=== PATIENT | female | born 1930 | race Caucasian/White ===

== ENCOUNTER 2016-11-08 12:05 | Inpatient (IN) | payer OTHER ==
[~2016-11-08] VITALS: Ht 154.9 cm; Wt 94.3 kg
[~2016-11-08 12:05] MED LIST: ACET-2178 PO; ALLO100T PO; ASPI-1159 PO; ATOR10TA69 PO; BRIM5DRO BOTHEYE; CALC667T5 PO; CINA30 PO; CINN500C5 PO; FISH PO; GLUC1CAP17 PO; HUM100IN SQ; HUM10VIA9 SUBCUT; LEVO125T8 PO; [UNRECOGNIZED DRUG - CODE] PO
[2016-11-08] MEDS ORDERED: ONDANSETRON HCL 4MG/2ML VIAL IV STA (12:50)
[2016-11-08] MEDS ORDERED: MORPHINE SULFATE 4 MG/ML CPJ (NOT FOR IM USE) IV STA (12:50)
[2016-11-08 13:09] LABS: BASOPHILS % 1.1 % (0.0-2.0); EOSINOPHILS % 5.9 % (0.0-5.0); HEMATOCRIT. 35.4 % (36.0-48.0); HEMOGLOBIN. 11.6 g/dL (12.0-16.0); LYMPHOCYTES % 10.3 % (20.0-50.0); MEAN CORPUSCULAR HEMOGLOBIN 30.1 pg (28.0-32.0); MEAN CORPUSCULAR VOLUME 91.6 fL (81.0-99.0); MEAN PLATELET VOLUME 8.3 fl (7.4-10.4); NEUTROPHILS % 72.7 % (40.0-76.0); PLATELET 113 x1000/uL (130-400); RED BLOOD CELL COUNT 3.86 mill/uL (4.2-5.4); RED CELL DISTRIBUTION WIDTH 18.3 % (11.6-14.6)
[2016-11-08 13:17] LABS: CHLORIDE 100 mEq/L (98-107)
[2016-11-08 13:18] LABS: INR 1.1; PARTIAL THROMBOPLASTIN TIME 26.6 sec (24.0-34.0); PROTHROMBIN TIME 11.4 sec
[2016-11-08 13:23] LABS: CARBON DIOXIDE 31 mEq/L (21-32)
[2016-11-08] MEDS ORDERED: DEXTROSE 50% WATER 50ML SYRINGE IV ONE ×2 (15:30→16:15)
[2016-11-08 17:01] VITALS: BP 139/76
[2016-11-08] MEDS ORDERED: MONT10TA21 PO (17:14)
[2016-11-08] MEDS ORDERED: NEPVIT PO (17:14)
[2016-11-08] MEDS ORDERED: ALBU90AE IH (17:14)
[2016-11-08] MEDS ORDERED: DIGO125T82 PO (17:14)
[2016-11-08] MEDS ORDERED: ASPI-864 PO (17:19)
[2016-11-08] MEDS ORDERED: VIT1CAPS5 PO (17:19)
[2016-11-08 17:27] VITALS: BP 139/76
[2016-11-08] MEDS ORDERED: IPRATROPIUM/ALBUTEROL 0.5-3(2.5)MG/3ML NEB HHN PRN (17:45)
[2016-11-08] MEDS ORDERED: DEXTROSE 50% WATER 50ML SYRINGE IV PRN (17:45)
[2016-11-08] MEDS ORDERED: HYDROCODONE/ACETAMINOPHEN 5/325MG TABLET PO PRN (17:45)
[2016-11-08 20:00] VITALS: BP 115/55
[2016-11-08] MEDS: BLOOD SUGAR DIAGNOSTIC STRIP TEST SCH (20:44)
[2016-11-08] MEDS: INSULIN LISPRO 100 UNITS/ML SUBCUT SCH (20:55)
[2016-11-08] MEDS ORDERED: MONTELUKAST SODIUM 10MG TABLET PO SCH (21:00)
[2016-11-08] MEDS ORDERED: ALLOPURINOL 100 MG TABLET PO SCH (21:00)
[2016-11-08] MEDS: BRIMONIDINE 0.2% OPHTH DROPS 5ML EACHEYE SCH (21:13)
[2016-11-09] VITALS (17 sets, daily range): BP systolic 117–173; BP diastolic 41–84
[2016-11-09 06:19] LABS: BASOPHILS % 1.3 % (0.0-2.0); EOSINOPHILS % 8.3 % (0.0-5.0); HEMATOCRIT. 35.7 % (36.0-48.0); HEMOGLOBIN. 12.1 g/dL (12.0-16.0); LYMPHOCYTES % 10.7 % (20.0-50.0); MEAN CORPUSCULAR HEMOGLOBIN 31.8 pg (28.0-32.0); MEAN CORPUSCULAR VOLUME 94.4 fL (81.0-99.0); MEAN PLATELET VOLUME 8.6 fl (7.4-10.4); MONOCYTES % 12.8 % (2.0-8.0); NEUTROPHILS % 66.9 % (40.0-76.0); PLATELET 113 x1000/uL (130-400); RED BLOOD CELL COUNT 3.79 mill/uL (4.2-5.4); RED CELL DISTRIBUTION WIDTH 18.4 % (11.6-14.6)
[2016-11-09] MEDS: INSULIN LISPRO 100 UNITS/ML SUBCUT SCH ×3 (06:21→17:20)
[2016-11-09] MEDS: BLOOD SUGAR DIAGNOSTIC STRIP TEST SCH ×3 (06:21→17:19)
[2016-11-09] MEDS ORDERED: LEVOTHYROXINE SODIUM 125MCG TABLET PO SCH (07:10)
[2016-11-09] MEDS ORDERED: CINACALCET HCL 30MG TABLET PO SCH (07:40)
[2016-11-09] MEDS ORDERED: ATORVASTATIN CALCIUM 10MG TABLET PO SCH (09:00)
[2016-11-09] MEDS ORDERED: INS NPH/REG HM 70-30 100 UNITS/ML 10ML VIAL (HUMULIN 70-30) SUBCUT SCH (09:00)
[2016-11-09] MEDS ORDERED: FOLIC ACID/VITAMIN B COMP W-C TABLET PO SCH (09:00)
[2016-11-09] MEDS ORDERED: FISH OIL/OMEGA-3 FATTY ACIDS 1000MG CAPSULE PO SCH (09:00)
[2016-11-09] MEDS ORDERED: DEXTROSE 5% WATER 1,000 ML IV SCH (10:15)
[2016-11-09] MEDS: BRIMONIDINE 0.2% OPHTH DROPS 5ML EACHEYE SCH (10:21)
[2016-11-09] MEDS ORDERED: CEFAZOLIN 1000MG PREMIX 50 ML IV ONE ×2 (10:38→11:15)
[2016-11-09] MEDS ORDERED: SODIUM BICARBONATE 4% (2.4MEQ) 5ML VIAL IV ONE ×2 (10:57→13:43)
[2016-11-09] MEDS ORDERED: LIDOCAINE HCL 1% 20ML VIAL (Pyxis) INJ ONE ×2 (10:57→13:43)
[2016-11-09] MEDS ORDERED: FENTANYL CITRATE/PF 50MCG/ML 2ML VIAL ONE (11:15)
[2016-11-09] MEDS ORDERED: HEPARIN 1000 UNITS/ML 10ML ONE (11:31)
[2016-11-09] MEDS ORDERED: IOHEXOL-300 100 ML BOTTLE ONE (11:42)
[2016-11-09] MEDS ORDERED: HEPARIN 5000 UNITS/ML VIAL IV ONE (12:00)
[2016-11-09] MEDS ORDERED: HEPARIN 1000 UNITS/ML 10ML IV NR (12:15)
[2016-11-09] MEDS ORDERED: FENTANYL CITRATE/PF 50MCG/ML 2ML VIAL IV ONE (12:15)
[2016-11-09] MEDS ORDERED: DIGOXIN 125MCG TABLET PO SCH (18:00)
== END 2016-11-09 22:05 | disposition home or self-care (01) | DRG 270 ==
LOC: ER 12:05 → 8WST 14:17 → OBSVTOIN 14:17 → INTOOBSV 14:17 → EDBEDREQ 14:19 → EDBEDREQTM 14:19 → ENRESERV 15:22 → 8WST 16:53
PROVIDERS: ADMIT Internal Medicine; ATTEND Internal Medicine
PROC: 03C Upper Arteries, Extirpation (ICD-10-PCS; principal; 2016-11-09)
PROC: 03723ZZ Dilation of Innominate Artery, Percutaneous Approach (ICD-10-PCS; 2016-11-09)
PROC: 02PYX3Z Removal of Infusion Device from Great Vessel, External Approach (ICD-10-PCS; 2016-11-09)
PROC: 02HV33Z Insertion of Infusion Device into Superior Vena Cava, Percutaneous Approach (ICD-10-PCS; 2016-11-09)
PROC: B5181ZA Fluoroscopy of Superior Vena Cava using Low Osmolar Contrast, Guidance (ICD-10-PCS; 2016-11-09)
PROC: B51N1ZZ Fluoroscopy of Left Upper Extremity Veins using Low Osmolar Contrast (ICD-10-PCS; 2016-11-09)
PROC: B51W1ZZ Fluoroscopy of Dialysis Shunt/Fistula using Low Osmolar Contrast (ICD-10-PCS; 2016-11-09)
PROC: B5181ZZ Fluoroscopy of Superior Vena Cava using Low Osmolar Contrast (ICD-10-PCS; 2016-11-09)
PROC: B31N1ZZ Fluoroscopy of Other Upper Arteries using Low Osmolar Contrast (ICD-10-PCS; 2016-11-09)
DX: T82.868A Thrombosis due to vascular prosthetic devices, implants and grafts, initial encounter (principal); N18.6 End stage renal disease; I13.2 Hypertensive heart and chronic kidney disease with heart failure and with stage 5 chronic kidney disease, or end stage renal disease; I42.0 Dilated cardiomyopathy; E11.22 Type 2 diabetes mellitus with diabetic chronic kidney disease; T82.510A Breakdown (mechanical) of surgically created arteriovenous fistula, initial encounter; N25.81 Secondary hyperparathyroidism of renal origin; I50.22 Chronic systolic (congestive) heart failure; E11.51 Type 2 diabetes mellitus with diabetic peripheral angiopathy without gangrene; D64.9 Anemia, unspecified; E03.9 Hypothyroidism, unspecified; I48.0 Paroxysmal atrial fibrillation; M10.9 Gout, unspecified; Y71.2 Prosthetic and other implants, materials and accessory cardiovascular devices associated with adverse incidents; Y83.2 Surgical operation with anastomosis, bypass or graft as the cause of abnormal reaction of the patient, or of later complication, without mention of misadventure at the time of the procedure; Z99.2 Dependence on renal dialysis; Z90.710 Acquired absence of both cervix and uterus; Z90.49 Acquired absence of other specified parts of digestive tract; Z88.2 Allergy status to sulfonamides; Z91.048 Other nonmedicinal substance allergy status; Z79.82 Long term (current) use of aspirin; Z79.4 Long term (current) use of insulin
CPT/HCPCS: 36415; 36581; 36905; 71010; 77001; 80048; 80053; 82962; 85025; 85610; 85730; 93005; 96374; 96375; 99285; C1725; C1750; C1766; C1769; C2630; G0378; J0690; J1642; J1644; J1815; J3010; J3490; J7030; J7050; J7070; Q9967

== ENCOUNTER 2016-12-19 13:53 | Inpatient (IN) | payer OTHER ==
[~2016-12-19] VITALS: Ht 154.9 cm; Wt 109.3 kg
[~2016-12-19 13:53] MED LIST changes: -ACET-2178 PO; +ALBU90AE IH; -ASPI-1159 PO; +ASPI-864 PO; +DIGO125T82 PO; +MONT10TA21 PO; +NEPVIT PO; +VIT1CAPS5 PO; -[UNRECOGNIZED DRUG - CODE] PO
[2016-12-19] MEDS ORDERED: MORPHINE SULFATE 4 MG/ML CPJ (NOT FOR IM USE) IV STA (14:24)
[2016-12-19] MEDS ORDERED: ONDANSETRON HCL 4MG/2ML VIAL IV STA (14:24)
[2016-12-19] MEDS ORDERED: SODIUM CHLORIDE 0.9% 1,000 ML IV ONE (14:24)
[2016-12-19 15:03] LABS: BASOPHILS % 1.2 % (0.0-2.0); EOSINOPHILS % 1.7 % (0.0-5.0); HEMATOCRIT. 42.1 % (36.0-48.0); HEMOGLOBIN. 14.1 g/dL (12.0-16.0); LYMPHOCYTES % 8.7 % (20.0-50.0); MEAN CORPUSCULAR HEMOGLOBIN 32.6 pg (28.0-32.0); MEAN CORPUSCULAR VOLUME 97.3 fL (81.0-99.0); MEAN PLATELET VOLUME 7.8 fl (7.4-10.4); MONOCYTES % 8.4 % (2.0-8.0); PLATELET 206 x1000/uL (130-400); RED BLOOD CELL COUNT 4.32 mill/uL (4.2-5.4); RED CELL DISTRIBUTION WIDTH 16.9 % (11.6-14.6)
[2016-12-19 15:07] LABS: INR 1.1; PARTIAL THROMBOPLASTIN TIME 25.2 sec (23.4-31.0); PROTHROMBIN TIME 11.7 sec (9.4-11.6)
[2016-12-19 15:08] LABS: CHLORIDE 101 mEq/L (98-107)
[2016-12-19 15:10] LABS: CARBON DIOXIDE 22 mEq/L (21-32)
[2016-12-19] MEDS ORDERED: MORPHINE SULFATE 4 MG/ML CPJ (NOT FOR IM USE) IV ONE (16:30)
[2016-12-19 16:47] LABS: BG BASE EXCESS -3.4 mmol/L (-2.0-2.0); BG DEOXYHEMOGLOBIN 7.7 % (0.0-5.0); BG METHEMOGLOBIN 0.3 % (0.0-1.5); BG OXYGEN SATURATION 92.2 % (92.0-98.5); BG PCO2 40.5 mmHg (35.0-45.0); BG PH 7.352 (7.350-7.450); BG PO2 66.1 mmHg (75.0-100.0); BG SAMPLE SITE RIGHT RADIAL; BG TOTAL HEMOGLOBIN 14.6 g/dL (12.0-18.0); BG VENT MODE ROOM AIR
[2016-12-19] MEDS ORDERED: ONDANSETRON HCL 4MG/2ML VIAL IV PRN (23:30)
[2016-12-19] MEDS ORDERED: PANTOPRAZOLE SODIUM 40 MG/VIAL IV SCH (23:30)
[2016-12-19] MEDS: MORPHINE SULFATE 4 MG/ML CPJ (NOT FOR IM USE) IV PRN (23:45)
[2016-12-20] VITALS (9 sets, daily range): BP systolic 90–158; BP diastolic 39–85
[2016-12-20] MEDS ORDERED: NEPVIT PO (00:35)
[2016-12-20] MEDS ORDERED: ONDANSETRON HCL 4MG/2ML VIAL IV PRN (01:45)
[2016-12-20] MEDS: MORPHINE SULFATE 4 MG/ML CPJ (NOT FOR IM USE) IV PRN ×4 (02:55→20:48)
[2016-12-20] MEDS: PIPERACILLIN/TAZ 2.25G PREMIX 50 ML IV SCH ×3 (03:06→18:20)
[2016-12-20] MEDS: DEXT 5%/0.45% NACL 1000ML 1,000 ML IV SCH ×2 (03:06→16:45)
[2016-12-20] MEDS ORDERED: IOHEXOL-300 100 ML BOTTLE ONE ×2 (06:00→15:09)
[2016-12-20] MEDS ORDERED: SODIUM CHLORIDE 0.9% 10ML VIAL ONE ×2 (06:00→15:09)
[2016-12-20 06:31] LABS: HEMATOCRIT. 45.2 % (36.0-48.0); HEMOGLOBIN. 14.3 g/dL (12.0-16.0); MEAN CORPUSCULAR HEMOGLOBIN 31.6 pg (28.0-32.0); MEAN PLATELET VOLUME 8.7 fl (7.4-10.4); PLATELET 154 x1000/uL (130-400); RED BLOOD CELL COUNT 4.52 mill/uL (4.2-5.4); RED CELL DISTRIBUTION WIDTH 17.2 % (11.6-14.6)
[2016-12-20] MEDS: PANTOPRAZOLE SODIUM 40 MG/VIAL IV SCH (08:42)
[2016-12-20] MEDS ORDERED: DEXTROSE 50% WATER 50ML SYRINGE IV PRN (11:30)
[2016-12-20] MEDS ORDERED: PIPERACILLIN/TAZ 3.375G PREMIX 50 ML IV SCH (11:45)
[2016-12-20] MEDS: BLOOD SUGAR DIAGNOSTIC STRIP TEST SCH ×3 (12:36→20:54)
[2016-12-20] MEDS: INSULIN LISPRO 100 UNITS/ML SUBCUT SCH ×3 (12:36→21:00)
[2016-12-20] MEDS ORDERED: BACITRACIN ZINC 15GM TUBE TOP ONE (13:35)
[2016-12-20 17:31] LABS: PLATELET ESTIMATE NORMAL
[2016-12-21] VITALS (15 sets, daily range): BP systolic 92–155; BP diastolic 39–126
[2016-12-21] MEDS: MORPHINE SULFATE 4 MG/ML CPJ (NOT FOR IM USE) IV PRN ×5 (00:44→23:47)
[2016-12-21] MEDS: PIPERACILLIN/TAZ 2.25G PREMIX 50 ML IV SCH ×3 (03:30→18:58)
[2016-12-21] MEDS: DEXT 5%/0.45% NACL 1000ML 1,000 ML IV SCH (05:40)
[2016-12-21] MEDS: BLOOD SUGAR DIAGNOSTIC STRIP TEST SCH ×4 (06:37→21:00)
[2016-12-21 07:08] LABS: CARBON DIOXIDE 26 mEq/L (21-32); CHLORIDE 97 mEq/L (98-107); PHOSPHORUS 3.9 mg/dL (2.5-4.9)
[2016-12-21] MEDS: INSULIN LISPRO 100 UNITS/ML SUBCUT SCH ×5 (07:50→21:00)
[2016-12-21 07:59] LABS: HEMATOCRIT. 38.5 % (36.0-48.0); HEMOGLOBIN. 12.2 g/dL (12.0-16.0); MEAN CORPUSCULAR HEMOGLOBIN 31.2 pg (28.0-32.0); MEAN CORPUSCULAR VOLUME 98.3 fL (81.0-99.0); PLATELET 98 x1000/uL (130-400); RED BLOOD CELL COUNT 3.92 mill/uL (4.2-5.4)
[2016-12-21] MEDS: PANTOPRAZOLE SODIUM 40 MG/VIAL IV SCH ×3 (09:00→16:31)
[2016-12-21] MEDS ORDERED: ONDANSETRON HCL 4MG/2ML VIAL IV PRN ×2 (10:00→12:15)
[2016-12-21] MEDS ORDERED: DEXT 5%/0.45% NACL KCL 20MEQ/L 1,000 ML IV SCH (11:00)
[2016-12-21] MEDS ORDERED: FENTANYL CITRATE/PF 50MCG/ML 2ML VIAL ONE (11:34)
[2016-12-21] MEDS ORDERED: MIDAZOLAM HCL 2 MG/2 ML VIAL ONE (11:34)
[2016-12-21] MEDS ORDERED: HYDROMORPHONE HCL/PF 2MG/ML CPJ IV PRN (12:15)
[2016-12-21] MEDS ORDERED: MEPERIDINE HCL/PF 25MG/ML CPJ IV PRN (12:15)
[2016-12-21] MEDS ORDERED: LABETALOL HCL 20MG/4ML CARPUJECT IV PRN (12:15)
[2016-12-21] MEDS ORDERED: LIDOCAINE HCL 1% 20ML VIAL (Pyxis) INJ ONE (12:25)
[2016-12-21] MEDS ORDERED: DEXAMETHASONE 4MG/ML 1ML VIAL ONE (12:25)
[2016-12-21] MEDS ORDERED: ONDANSETRON HCL 4MG/2ML VIAL ONE (12:25)
[2016-12-21] MEDS ORDERED: NEOSTIGMINE METHYLSULFATE 1MG/ML 10 ML VIAL ONE (12:25)
[2016-12-21] MEDS ORDERED: GLYCOPYRROLATE 0.2 MG/ML 2ML VIAL ONE (12:25)
[2016-12-21] MEDS ORDERED: ROCURONIUM BROMIDE 10MG/ML VIAL 5ML IV ONE (12:25)
[2016-12-21] MEDS ORDERED: PROPOFOL 200MG/20ML VIAL IV ONE (12:25)
[2016-12-21] MEDS ORDERED: SUCCINYLCHOLINE CHLORIDE 200MG/10ML VIAL IV ONE (12:25)
[2016-12-21 16:23] LABS: PHOSPHORUS 4.4 mg/dL (2.5-4.9)
[2016-12-21 16:30] LABS: PLATELET ESTIMATE DECREASED
[2016-12-21] MEDS: SODIUM CHLORIDE 0.45% 1,000 ML IV SCH (16:31)
[2016-12-21 17:19] LABS: HEMATOCRIT. 38.5 % (36.0-48.0); HEMOGLOBIN. 12.5 g/dL (12.0-16.0); MEAN CORPUSCULAR HEMOGLOBIN 31.7 pg (28.0-32.0); MEAN CORPUSCULAR VOLUME 97.6 fL (81.0-99.0); PLATELET 96 x1000/uL (130-400); RED BLOOD CELL COUNT 3.95 mill/uL (4.2-5.4)
[2016-12-21 17:42] LABS: PLATELET ESTIMATE DECREASED
[2016-12-21 18:57] LABS: BG BASE EXCESS -2.1 mmol/L (-2.0-2.0); BG CARBOXYHEMOGLOBIN 0.9 % (0.5-1.5); BG FRACTION INSPIRED OXYGEN 40; BG HCO3 ACT 22.8 mmol/L (22.0-26.0); BG METHEMOGLOBIN 0.3 % (0.0-1.5); BG OXYHEMOGLOBIN 96.8 % (94.0-97.0); BG PCO2 39.7 mmHg (35.0-45.0); BG PH 7.377 (7.350-7.450); BG PRESSURE SUPPORT 6; BG SAMPLE SITE RIGHT RADIAL; BG TOTAL HEMOGLOBIN 13.8 g/dL (12.0-18.0); BG VENT MODE VENT - CPAP
[2016-12-21 23:03] LABS: BG BASE EXCESS -2.5 mmol/L (-2.0-2.0); BG CARBOXYHEMOGLOBIN 0.8 % (0.5-1.5); BG DEOXYHEMOGLOBIN 1.4 % (0.0-5.0); BG FRACTION INSPIRED OXYGEN 40; BG HCO3 ACT 22.7 mmol/L (22.0-26.0); BG METHEMOGLOBIN 0.3 % (0.0-1.5); BG OXYGEN SATURATION 98.6 % (92.0-98.5); BG OXYHEMOGLOBIN 97.5 % (94.0-97.0); BG PCO2 40.7 mmHg (35.0-45.0); BG PH 7.364 (7.350-7.450); BG PO2 121.7 mmHg (75.0-100.0); BG SAMPLE SITE RIGHT RADIAL; BG VENT MODE MASK - AEROSOL
[2016-12-22] VITALS (70 sets, daily range): BP systolic 60–166; BP diastolic 23–150
[2016-12-22] MEDS: PIPERACILLIN/TAZ 2.25G PREMIX 50 ML IV SCH ×3 (02:08→18:59)
[2016-12-22] MEDS: MORPHINE SULFATE 4 MG/ML CPJ (NOT FOR IM USE) IV PRN (04:15)
[2016-12-22 06:08] LABS: HEMATOCRIT. 37.1 % (36.0-48.0); HEMOGLOBIN. 12.2 g/dL (12.0-16.0); MEAN CORPUSCULAR HEMOGLOBIN 31.9 pg (28.0-32.0); MEAN CORPUSCULAR VOLUME 97.3 fL (81.0-99.0); MEAN PLATELET VOLUME 9.5 fl (7.4-10.4); PLATELET 105 x1000/uL (130-400); RED BLOOD CELL COUNT 3.81 mill/uL (4.2-5.4); RED CELL DISTRIBUTION WIDTH 16.6 % (11.6-14.6)
[2016-12-22 06:24] LABS: INR 1.4; PARTIAL THROMBOPLASTIN TIME 31.5 sec (23.4-31.0)
[2016-12-22 06:41] LABS: CARBON DIOXIDE 24 mEq/L (21-32); CHLORIDE 96 mEq/L (98-107); PHOSPHORUS 4.8 mg/dL (2.5-4.9)
[2016-12-22] MEDS: BLOOD SUGAR DIAGNOSTIC STRIP TEST SCH ×4 (07:50→21:20)
[2016-12-22] MEDS: INSULIN LISPRO 100 UNITS/ML SUBCUT SCH ×4 (08:20→21:00)
[2016-12-22] MEDS ORDERED: PANTOPRAZOLE SODIUM 40 MG/VIAL IV SCH (09:00)
[2016-12-22 10:06] LABS: PLATELET ESTIMATE SLIGHTLY DECREASED
[2016-12-22] MEDS: DILTIAZEM HCL 5MG/ML 5ML VIAL IV NR ×2 (11:12→12:00)
[2016-12-22] MEDS: PANTOPRAZOLE SODIUM 40 MG/VIAL IV SCH ×2 (11:12→12:00)
[2016-12-22] MEDS: ENOXAPARIN 40MG/0.4ML SYR SUBCUT SCH (11:13)
[2016-12-22] MEDS: DILTIAZEM HCL 125 MG in DEXT 5% WATER 100 ML IV SCH (12:14)
[2016-12-22] MEDS: SODIUM CHLORIDE 0.45% 1,000 ML IV SCH (15:52)
[2016-12-23] VITALS (29 sets, daily range): BP systolic 94–128; BP diastolic 42–66
[2016-12-23] MEDS: DILTIAZEM HCL 125 MG in DEXT 5% WATER 100 ML IV SCH ×2 (03:31→13:30)
[2016-12-23] MEDS: PIPERACILLIN/TAZ 2.25G PREMIX 50 ML IV SCH ×3 (03:31→18:50)
[2016-12-23 05:24] LABS: HEMATOCRIT. 34.7 % (36.0-48.0); HEMOGLOBIN. 11.2 g/dL (12.0-16.0); MEAN CORPUSCULAR HEMOGLOBIN 31.3 pg (28.0-32.0); MEAN CORPUSCULAR VOLUME 96.9 fL (81.0-99.0); PLATELET 115 x1000/uL (130-400); RED BLOOD CELL COUNT 3.58 mill/uL (4.2-5.4); RED CELL DISTRIBUTION WIDTH 16.7 % (11.6-14.6)
[2016-12-23] MEDS: INSULIN LISPRO 100 UNITS/ML SUBCUT SCH ×4 (07:20→21:00)
[2016-12-23] MEDS: BLOOD SUGAR DIAGNOSTIC STRIP TEST SCH ×4 (07:48→21:06)
[2016-12-23] MEDS: PANTOPRAZOLE SODIUM 40 MG/VIAL IV SCH (08:24)
[2016-12-23] MEDS: SODIUM CHLORIDE 0.45% 1,000 ML IV SCH ×2 (08:28→18:00)
[2016-12-23] MEDS: ENOXAPARIN 40MG/0.4ML SYR SUBCUT SCH (08:28)
[2016-12-23 10:19] LABS: ATYPICAL LYMPHOCYTES 1; NUCLEATED RED BLOOD CELLS 1 /100 WBC
[2016-12-23 10:20] LABS: PLATELET ESTIMATE SLIGHTLY DECREASED
[2016-12-24] VITALS (14 sets, daily range): BP systolic 113–134; BP diastolic 45–69
[2016-12-24] MEDS: DILTIAZEM HCL 125 MG in DEXT 5% WATER 100 ML IV SCH ×3 (01:59→06:54)
[2016-12-24] MEDS: PIPERACILLIN/TAZ 2.25G PREMIX 50 ML IV SCH ×3 (02:00→19:17)
[2016-12-24] MEDS: SODIUM CHLORIDE 0.45% 1,000 ML IV SCH ×3 (02:09→22:36)
[2016-12-24] MEDS: MORPHINE SULFATE 4 MG/ML CPJ (NOT FOR IM USE) IV PRN ×2 (04:31→19:17)
[2016-12-24] MEDS: BLOOD SUGAR DIAGNOSTIC STRIP TEST SCH ×4 (06:22→20:28)
[2016-12-24] MEDS: INSULIN LISPRO 100 UNITS/ML SUBCUT SCH ×4 (07:20→20:28)
[2016-12-24 08:07] LABS: HEMATOCRIT. 35.8 % (36.0-48.0); HEMOGLOBIN. 11.6 g/dL (12.0-16.0); MEAN CORPUSCULAR HEMOGLOBIN 31.5 pg (28.0-32.0); MEAN CORPUSCULAR VOLUME 97.1 fL (81.0-99.0); MEAN PLATELET VOLUME 8.9 fl (7.4-10.4); PLATELET 124 x1000/uL (130-400); RED BLOOD CELL COUNT 3.68 mill/uL (4.2-5.4); RED CELL DISTRIBUTION WIDTH 16.6 % (11.6-14.6)
[2016-12-24] MEDS: ENOXAPARIN 40MG/0.4ML SYR SUBCUT SCH (08:51)
[2016-12-24] MEDS: PANTOPRAZOLE SODIUM 40 MG/VIAL IV SCH (08:51)
[2016-12-24 09:57] LABS: PLATELET ESTIMATE SLIGHTLY DECREASED
[2016-12-24] MEDS ORDERED: BISACODYL 10MG SUPP PR NR (12:45)
[2016-12-25] VITALS (13 sets, daily range): BP systolic 91–123; BP diastolic 46–67
[2016-12-25] MEDS: PIPERACILLIN/TAZ 2.25G PREMIX 50 ML IV SCH ×3 (03:09→18:42)
[2016-12-25] MEDS: BLOOD SUGAR DIAGNOSTIC STRIP TEST SCH ×4 (06:11→21:36)
[2016-12-25] MEDS: INSULIN LISPRO 100 UNITS/ML SUBCUT SCH ×4 (07:20→21:00)
[2016-12-25 07:37] LABS: HEMATOCRIT. 36.7 % (36.0-48.0); MEAN CORPUSCULAR HEMOGLOBIN 31.5 pg (28.0-32.0); MEAN PLATELET VOLUME 8.8 fl (7.4-10.4); PLATELET 121 x1000/uL (130-400); RED BLOOD CELL COUNT 3.82 mill/uL (4.2-5.4); RED CELL DISTRIBUTION WIDTH 16.7 % (11.6-14.6)
[2016-12-25] MEDS: PANTOPRAZOLE SODIUM 40 MG/VIAL IV SCH (10:13)
[2016-12-25] MEDS: ENOXAPARIN 40MG/0.4ML SYR SUBCUT SCH (10:14)
[2016-12-25 12:08] LABS: PLATELET ESTIMATE DECREASED
[2016-12-25] MEDS: SODIUM CHLORIDE 0.45% 1,000 ML IV SCH (17:19)
[2016-12-26] VITALS (16 sets, daily range): BP systolic 102–132; BP diastolic 46–88
[2016-12-26] MEDS: PIPERACILLIN/TAZ 2.25G PREMIX 50 ML IV SCH ×3 (03:15→18:32)
[2016-12-26] MEDS: DILTIAZEM HCL 125 MG in DEXT 5% WATER 100 ML IV SCH (04:44)
[2016-12-26] MEDS: BLOOD SUGAR DIAGNOSTIC STRIP TEST SCH ×4 (06:49→21:55)
[2016-12-26] MEDS: INSULIN LISPRO 100 UNITS/ML SUBCUT SCH ×4 (07:20→21:58)
[2016-12-26 07:44] LABS: HEMOGLOBIN. 12.5 g/dL (12.0-16.0); MEAN CORPUSCULAR HEMOGLOBIN 31.3 pg (28.0-32.0); MEAN CORPUSCULAR VOLUME 97.8 fL (81.0-99.0); MEAN PLATELET VOLUME 8.7 fl (7.4-10.4); PLATELET 131 x1000/uL (130-400); RED BLOOD CELL COUNT 3.99 mill/uL (4.2-5.4)
[2016-12-26] MEDS: PANTOPRAZOLE SODIUM 40 MG/VIAL IV SCH (09:01)
[2016-12-26] MEDS: ENOXAPARIN 40MG/0.4ML SYR SUBCUT SCH (09:01)
[2016-12-26] MEDS: DILTIAZEM HCL 60MG TABLET PO SCH ×2 (11:49→21:54)
[2016-12-26] MEDS: LACTOBACILLUS GG CAPSULE PO SCH (14:13)
[2016-12-26] MEDS: SODIUM CHLORIDE 0.45% 1,000 ML IV SCH (14:14)
[2016-12-26 17:03] LABS: PLATELET ESTIMATE NORMAL
[2016-12-26] MEDS: VANCOMYCIN HCL 1000 MG/20 ML ORAL PO SCH (18:32)
[2016-12-27] VITALS (10 sets, daily range): BP systolic 102–147; BP diastolic 49–75
[2016-12-27] MEDS: VANCOMYCIN HCL 1000 MG/20 ML ORAL PO SCH ×5 (00:05→20:47)
[2016-12-27] MEDS ORDERED: MORPHINE SULFATE 4 MG/ML CPJ (NOT FOR IM USE) IV PRN (01:00)
[2016-12-27] MEDS: PIPERACILLIN/TAZ 2.25G PREMIX 50 ML IV SCH (04:49)
[2016-12-27] MEDS: SODIUM CHLORIDE 0.45% 1,000 ML IV SCH (04:51)
[2016-12-27] MEDS: DILTIAZEM HCL 60MG TABLET PO SCH ×3 (05:33→20:46)
[2016-12-27] MEDS: BLOOD SUGAR DIAGNOSTIC STRIP TEST SCH ×4 (06:08→20:47)
[2016-12-27 06:44] LABS: HEMOGLOBIN. 12.4 g/dL (12.0-16.0); MEAN CORPUSCULAR HEMOGLOBIN 30.8 pg (28.0-32.0); MEAN CORPUSCULAR VOLUME 94.4 fL (81.0-99.0); MEAN PLATELET VOLUME 8.4 fl (7.4-10.4); PLATELET 154 x1000/uL (130-400); RED BLOOD CELL COUNT 4.02 mill/uL (4.2-5.4)
[2016-12-27 08:12] LABS: PHOSPHORUS 5.8 mg/dL (2.5-4.9)
[2016-12-27] MEDS: PANTOPRAZOLE SODIUM 40 MG/VIAL IV SCH (08:27)
[2016-12-27] MEDS: ENOXAPARIN 40MG/0.4ML SYR SUBCUT SCH (08:28)
[2016-12-27] MEDS: LACTOBACILLUS GG CAPSULE PO SCH (08:28)
[2016-12-27] MEDS: INSULIN LISPRO 100 UNITS/ML SUBCUT SCH ×4 (08:30→20:46)
[2016-12-27] MEDS: ONDANSETRON HCL 4MG/2ML VIAL IV PRN ×2 (10:03→20:09)
[2016-12-27 12:08] LABS: PLATELET ESTIMATE NORMAL
[2016-12-27] MEDS: HEPARIN SODIUM 1,000 UNIT/1ML VIAL IV SCH ×2 (14:22→16:58)
[2016-12-27] MEDS: MORPHINE SULFATE 4 MG/ML CPJ (NOT FOR IM USE) IV PRN (16:38)
[2016-12-27] MEDS ORDERED: DILTIAZEM HCL 125 MG in DEXT 5% WATER 100 ML IV PRN (20:00)
[2016-12-28] VITALS (9 sets, daily range): BP systolic 90–120; BP diastolic 44–59
[2016-12-28] MEDS: SODIUM CHLORIDE 0.45% 1,000 ML IV SCH ×2 (04:02→17:03)
[2016-12-28] MEDS: MORPHINE SULFATE 4 MG/ML CPJ (NOT FOR IM USE) IV PRN (04:19)
[2016-12-28] MEDS: VANCOMYCIN HCL 1000 MG/20 ML ORAL PO SCH ×4 (05:40→23:01)
[2016-12-28] MEDS: DILTIAZEM HCL 60MG TABLET PO SCH ×3 (05:40→22:00)
[2016-12-28 06:46] LABS: HEMATOCRIT. 37.5 % (36.0-48.0); HEMOGLOBIN. 12.2 g/dL (12.0-16.0); MEAN CORPUSCULAR HEMOGLOBIN 30.9 pg (28.0-32.0); MEAN CORPUSCULAR VOLUME 95.1 fL (81.0-99.0); MEAN PLATELET VOLUME 8.4 fl (7.4-10.4); PLATELET 167 x1000/uL (130-400); RED BLOOD CELL COUNT 3.94 mill/uL (4.2-5.4); RED CELL DISTRIBUTION WIDTH 17.1 % (11.6-14.6)
[2016-12-28] MEDS: BLOOD SUGAR DIAGNOSTIC STRIP TEST SCH ×4 (06:51→21:54)
[2016-12-28] MEDS: INSULIN LISPRO 100 UNITS/ML SUBCUT SCH ×4 (06:52→21:00)
[2016-12-28 07:41] LABS: CARBON DIOXIDE 23 mEq/L (21-32); CHLORIDE 105 mEq/L (98-107)
[2016-12-28 09:23] LABS: PLATELET ESTIMATE NORMAL
[2016-12-28] MEDS: LACTOBACILLUS GG CAPSULE PO SCH (10:00)
[2016-12-28] MEDS: ENOXAPARIN 40MG/0.4ML SYR SUBCUT SCH (10:18)
[2016-12-28] MEDS: PANTOPRAZOLE SODIUM 40 MG/VIAL IV SCH (10:18)
[2016-12-28] MEDS: METRONIDAZOLE 500 MG PREMIX 100 ML IV SCH ×2 (17:03→22:53)
[2016-12-29] VITALS (11 sets, daily range): BP systolic 86–123; BP diastolic 46–67
[2016-12-29] MEDS: VANCOMYCIN HCL 1000 MG/20 ML ORAL PO SCH ×4 (05:36→23:45)
[2016-12-29] MEDS: METRONIDAZOLE 500 MG PREMIX 100 ML IV SCH ×3 (05:37→21:26)
[2016-12-29] MEDS: BLOOD SUGAR DIAGNOSTIC STRIP TEST SCH ×4 (05:37→21:29)
[2016-12-29] MEDS: DILTIAZEM HCL 60MG TABLET PO SCH ×3 (05:37→21:35)
[2016-12-29 05:58] LABS: HEMATOCRIT. 38.3 % (36.0-48.0); HEMOGLOBIN. 12.3 g/dL (12.0-16.0); MEAN CORPUSCULAR HEMOGLOBIN 31.1 pg (28.0-32.0); MEAN CORPUSCULAR VOLUME 96.5 fL (81.0-99.0); MEAN PLATELET VOLUME 8.4 fl (7.4-10.4); PLATELET 185 x1000/uL (130-400); RED BLOOD CELL COUNT 3.96 mill/uL (4.2-5.4); RED CELL DISTRIBUTION WIDTH 17.1 % (11.6-14.6)
[2016-12-29] MEDS: INSULIN LISPRO 100 UNITS/ML SUBCUT SCH ×4 (07:20→21:34)
[2016-12-29] MEDS: SODIUM CHLORIDE 0.45% 1,000 ML IV SCH ×2 (07:20→23:16)
[2016-12-29] MEDS: PANTOPRAZOLE SODIUM 40 MG/VIAL IV SCH (09:22)
[2016-12-29] MEDS: ENOXAPARIN 40MG/0.4ML SYR SUBCUT SCH (09:23)
[2016-12-29] MEDS: LACTOBACILLUS GG CAPSULE PO SCH (09:23)
[2016-12-29 17:39] LABS: PLATELET ESTIMATE NORMAL
[2016-12-30] VITALS (12 sets, daily range): BP systolic 90–132; BP diastolic 45–83
[2016-12-30 06:49] LABS: HEMOGLOBIN. 12.5 g/dL (12.0-16.0); MEAN CORPUSCULAR HEMOGLOBIN 31.2 pg (28.0-32.0); MEAN CORPUSCULAR VOLUME 97.2 fL (81.0-99.0); MEAN PLATELET VOLUME 8.5 fl (7.4-10.4); PLATELET 187 x1000/uL (130-400); RED BLOOD CELL COUNT 4.01 mill/uL (4.2-5.4); RED CELL DISTRIBUTION WIDTH 17.3 % (11.6-14.6)
[2016-12-30] MEDS: DILTIAZEM HCL 60MG TABLET PO SCH ×3 (07:00→22:00)
[2016-12-30] MEDS: VANCOMYCIN HCL 1000 MG/20 ML ORAL PO SCH ×3 (07:01→18:27)
[2016-12-30] MEDS: METRONIDAZOLE 500 MG PREMIX 100 ML IV SCH (07:01)
[2016-12-30] MEDS: BLOOD SUGAR DIAGNOSTIC STRIP TEST SCH ×4 (07:01→21:00)
[2016-12-30 07:21] LABS: CARBON DIOXIDE 19 mEq/L (21-32); CHLORIDE 106 mEq/L (98-107)
[2016-12-30] MEDS: LACTOBACILLUS GG CAPSULE PO SCH (08:47)
[2016-12-30] MEDS: ENOXAPARIN 40MG/0.4ML SYR SUBCUT SCH (08:48)
[2016-12-30] MEDS: PANTOPRAZOLE SODIUM 40 MG/VIAL IV SCH (08:48)
[2016-12-30] MEDS: INSULIN LISPRO 100 UNITS/ML SUBCUT SCH ×4 (08:49→22:25)
[2016-12-30] MEDS: METRONIDAZOLE 500MG TABLET PO SCH ×2 (13:57→22:24)
[2016-12-30 14:08] LABS: PLATELET ESTIMATE NORMAL
[2016-12-30] MEDS: SODIUM CHLORIDE 0.45% 1,000 ML IV SCH (16:59)
[2016-12-31] VITALS (12 sets, daily range): BP systolic 97–125; BP diastolic 43–66
[2016-12-31] MEDS: VANCOMYCIN HCL 1000 MG/20 ML ORAL PO SCH ×4 (00:57→17:57)
[2016-12-31] MEDS: BLOOD SUGAR DIAGNOSTIC STRIP TEST SCH ×4 (05:48→21:18)
[2016-12-31] MEDS: DILTIAZEM HCL 60MG TABLET PO SCH (05:48)
[2016-12-31] MEDS: METRONIDAZOLE 500MG TABLET PO SCH ×3 (05:48→21:18)
[2016-12-31] MEDS: INSULIN LISPRO 100 UNITS/ML SUBCUT SCH ×4 (05:54→21:19)
[2016-12-31] MEDS: FAMOTIDINE 20MG TABLET PO SCH (08:39)
[2016-12-31] MEDS: ENOXAPARIN 40MG/0.4ML SYR SUBCUT SCH (08:39)
[2016-12-31] MEDS: LACTOBACILLUS GG CAPSULE PO SCH (08:39)
[2016-12-31] MEDS: SODIUM CHLORIDE 0.45% 1,000 ML IV SCH (09:20)
[2016-12-31] MEDS: DILTIAZEM HCL 90MG TABLET PO SCH ×2 (12:37→18:00)
[2016-12-31] MEDS: LEVOTHYROXINE SODIUM 125MCG TABLET PO SCH (12:38)
[2016-12-31] MEDS: MORPHINE SULFATE 4 MG/ML CPJ (NOT FOR IM USE) IV PRN (22:35)
[2017-01-01] VITALS (12 sets, daily range): BP systolic 91–151; BP diastolic 35–67
[2017-01-01] MEDS: VANCOMYCIN HCL 1000 MG/20 ML ORAL PO SCH ×5 (00:19→23:59)
[2017-01-01] MEDS: DILTIAZEM HCL 90MG TABLET PO SCH ×2 (00:20→06:21)
[2017-01-01] MEDS: SODIUM CHLORIDE 0.45% 1,000 ML IV SCH ×2 (02:14→17:54)
[2017-01-01 06:14] LABS: HEMATOCRIT. 35.9 % (36.0-48.0); HEMOGLOBIN. 11.8 g/dL (12.0-16.0); MEAN CORPUSCULAR HEMOGLOBIN 31.3 pg (28.0-32.0); MEAN CORPUSCULAR VOLUME 95.3 fL (81.0-99.0); MEAN PLATELET VOLUME 8.7 fl (7.4-10.4); PLATELET 191 x1000/uL (130-400); RED BLOOD CELL COUNT 3.76 mill/uL (4.2-5.4); RED CELL DISTRIBUTION WIDTH 17.4 % (11.6-14.6)
[2017-01-01] MEDS: METRONIDAZOLE 500MG TABLET PO SCH ×4 (06:20→21:25)
[2017-01-01] MEDS: LEVOTHYROXINE SODIUM 125MCG TABLET PO SCH (06:21)
[2017-01-01] MEDS: INSULIN LISPRO 100 UNITS/ML SUBCUT SCH ×4 (06:23→21:14)
[2017-01-01] MEDS: BLOOD SUGAR DIAGNOSTIC STRIP TEST SCH ×4 (06:23→21:19)
[2017-01-01] MEDS: LACTOBACILLUS GG CAPSULE PO SCH (08:35)
[2017-01-01] MEDS: FAMOTIDINE 20MG TABLET PO SCH (08:35)
[2017-01-01] MEDS: ENOXAPARIN 40MG/0.4ML SYR SUBCUT SCH (08:37)
[2017-01-01 09:18] LABS: BG CARBOXYHEMOGLOBIN 0.7 % (0.5-1.5); BG DEOXYHEMOGLOBIN 5.1 % (0.0-5.0); BG FRACTION INSPIRED OXYGEN 32; BG HCO3 ACT 21.5 mmol/L (22.0-26.0); BG METHEMOGLOBIN 0.5 % (0.0-1.5); BG OXYGEN SATURATION 94.8 % (92.0-98.5); BG OXYHEMOGLOBIN 93.7 % (94.0-97.0); BG PCO2 45.4 mmHg (35.0-45.0); BG PH 7.293 (7.350-7.450); BG PO2 75.9 mmHg (75.0-100.0); BG SAMPLE SITE RIGHT RADIAL; BG VENT MODE NASAL CANNULA
[2017-01-01] MEDS: DILTIAZEM HCL 60MG TABLET PO SCH ×2 (13:48→21:58)
[2017-01-01 15:57] LABS: PLATELET ESTIMATE NORMAL
[2017-01-02] VITALS (12 sets, daily range): BP systolic 91–132; BP diastolic 44–77
[2017-01-02] MEDS: DILTIAZEM HCL 60MG TABLET PO SCH ×3 (06:00→21:28)
[2017-01-02] MEDS: BLOOD SUGAR DIAGNOSTIC STRIP TEST SCH ×4 (06:03→21:23)
[2017-01-02] MEDS: LEVOTHYROXINE SODIUM 125MCG TABLET PO SCH (06:03)
[2017-01-02] MEDS: VANCOMYCIN HCL 1000 MG/20 ML ORAL PO SCH ×4 (06:03→23:54)
[2017-01-02] MEDS: METRONIDAZOLE 500MG TABLET PO SCH ×3 (06:03→21:27)
[2017-01-02 07:12] LABS: HEMATOCRIT. 35.5 % (36.0-48.0); HEMOGLOBIN. 11.4 g/dL (12.0-16.0); MEAN CORPUSCULAR HEMOGLOBIN 30.9 pg (28.0-32.0); MEAN CORPUSCULAR VOLUME 96.1 fL (81.0-99.0); MEAN PLATELET VOLUME 8.6 fl (7.4-10.4); PLATELET 159 x1000/uL (130-400); RED CELL DISTRIBUTION WIDTH 17.1 % (11.6-14.6)
[2017-01-02 08:01] LABS: BG BASE EXCESS -1.9 mmol/L (-2.0-2.0); BG CARBOXYHEMOGLOBIN 0.6 % (0.5-1.5); BG DEOXYHEMOGLOBIN 4.5 % (0.0-5.0); BG HCO3 ACT 23.4 mmol/L (22.0-26.0); BG METHEMOGLOBIN 0.2 % (0.0-1.5); BG OXYGEN SATURATION 95.5 % (92.0-98.5); BG OXYHEMOGLOBIN 94.7 % (94.0-97.0); BG PCO2 41.9 mmHg (35.0-45.0); BG PH 7.365 (7.350-7.450); BG SAMPLE SITE RIGHT RADIAL; BG VENT MODE NASAL CANNULA
[2017-01-02] MEDS: ENOXAPARIN 40MG/0.4ML SYR SUBCUT SCH (08:20)
[2017-01-02] MEDS: LACTOBACILLUS GG CAPSULE PO SCH (08:20)
[2017-01-02] MEDS: FAMOTIDINE 20MG TABLET PO SCH (08:20)
[2017-01-02] MEDS: INSULIN LISPRO 100 UNITS/ML SUBCUT SCH ×4 (08:21→21:23)
[2017-01-02] MEDS: SODIUM CHLORIDE 0.45% 1,000 ML IV SCH (11:00)
[2017-01-02 13:28] LABS: PLATELET ESTIMATE NORMAL
[2017-01-03] VITALS (12 sets, daily range): BP systolic 91–129; BP diastolic 28–72
[2017-01-03] MEDS: SODIUM CHLORIDE 0.45% 1,000 ML IV SCH (04:00)
[2017-01-03] MEDS: DILTIAZEM HCL 60MG TABLET PO SCH ×3 (06:00→21:34)
[2017-01-03] MEDS: METRONIDAZOLE 500MG TABLET PO SCH ×3 (06:13→21:34)
[2017-01-03] MEDS: LEVOTHYROXINE SODIUM 125MCG TABLET PO SCH (06:13)
[2017-01-03] MEDS: VANCOMYCIN HCL 1000 MG/20 ML ORAL PO SCH ×3 (06:14→17:54)
[2017-01-03] MEDS: BLOOD SUGAR DIAGNOSTIC STRIP TEST SCH ×4 (06:30→20:31)
[2017-01-03 07:17] LABS: HEMATOCRIT. 35.3 % (36.0-48.0); HEMOGLOBIN. 11.6 g/dL (12.0-16.0); MEAN CORPUSCULAR HEMOGLOBIN 31.1 pg (28.0-32.0); MEAN CORPUSCULAR VOLUME 94.3 fL (81.0-99.0); MEAN PLATELET VOLUME 8.4 fl (7.4-10.4); PLATELET 119 x1000/uL (130-400); RED BLOOD CELL COUNT 3.74 mill/uL (4.2-5.4); RED CELL DISTRIBUTION WIDTH 17.7 % (11.6-14.6)
[2017-01-03] MEDS: FAMOTIDINE 20MG TABLET PO SCH (08:24)
[2017-01-03] MEDS: LACTOBACILLUS GG CAPSULE PO SCH (08:24)
[2017-01-03] MEDS: ENOXAPARIN 40MG/0.4ML SYR SUBCUT SCH (08:24)
[2017-01-03] MEDS: INSULIN LISPRO 100 UNITS/ML SUBCUT SCH ×4 (08:25→21:38)
[2017-01-03 08:30] LABS: PHOSPHORUS 3.3 mg/dL (2.5-4.9)
[2017-01-03 16:57] LABS: PLATELET ESTIMATE DECREASED
[2017-01-04] VITALS (13 sets, daily range): BP systolic 85–126; BP diastolic 29–92
[2017-01-04] MEDS: VANCOMYCIN HCL 1000 MG/20 ML ORAL PO SCH ×5 (00:50→23:26)
[2017-01-04] MEDS: DILTIAZEM HCL 60MG TABLET PO SCH ×3 (06:00→21:52)
[2017-01-04 06:11] LABS: HEMATOCRIT. 36.4 % (36.0-48.0); HEMOGLOBIN. 11.8 g/dL (12.0-16.0); MEAN CORPUSCULAR HEMOGLOBIN 30.7 pg (28.0-32.0); MEAN CORPUSCULAR VOLUME 94.8 fL (81.0-99.0); MEAN PLATELET VOLUME 8.5 fl (7.4-10.4); PLATELET 110 x1000/uL (130-400); RED BLOOD CELL COUNT 3.85 mill/uL (4.2-5.4); RED CELL DISTRIBUTION WIDTH 17.4 % (11.6-14.6)
[2017-01-04] MEDS: METRONIDAZOLE 500MG TABLET PO SCH ×3 (06:27→21:52)
[2017-01-04] MEDS: LEVOTHYROXINE SODIUM 125MCG TABLET PO SCH (06:27)
[2017-01-04] MEDS: BLOOD SUGAR DIAGNOSTIC STRIP TEST SCH ×4 (06:32→20:12)
[2017-01-04 08:11] LABS: NUCLEATED RED BLOOD CELLS 1 /100 WBC
[2017-01-04 08:12] LABS: PLATELET ESTIMATE DECREASED
[2017-01-04] MEDS ORDERED: HEPARIN SODIUM 1,000 UNIT/1ML VIAL IV ONE (09:15)
[2017-01-04] MEDS ORDERED: HEPARIN SODIUM 1,000 UNIT/1ML VIAL IV SCH (09:15)
[2017-01-04] MEDS: INSULIN LISPRO 100 UNITS/ML SUBCUT SCH ×4 (09:31→21:51)
[2017-01-04] MEDS: FAMOTIDINE 20MG TABLET PO SCH (12:26)
[2017-01-04] MEDS: LACTOBACILLUS GG CAPSULE PO SCH (12:26)
[2017-01-04] MEDS: ENOXAPARIN 40MG/0.4ML SYR SUBCUT SCH (12:28)
[2017-01-05] VITALS (12 sets, daily range): BP systolic 97–121; BP diastolic 44–84
[2017-01-05] MEDS: LEVOTHYROXINE SODIUM 125MCG TABLET PO SCH (05:59)
[2017-01-05] MEDS: DILTIAZEM HCL 60MG TABLET PO SCH ×3 (06:00→22:00)
[2017-01-05] MEDS: VANCOMYCIN HCL 1000 MG/20 ML ORAL PO SCH ×4 (06:01→23:26)
[2017-01-05] MEDS: BLOOD SUGAR DIAGNOSTIC STRIP TEST SCH ×4 (06:01→22:09)
[2017-01-05] MEDS: ENOXAPARIN 40MG/0.4ML SYR SUBCUT SCH (08:06)
[2017-01-05] MEDS: FAMOTIDINE 20MG TABLET PO SCH (08:07)
[2017-01-05] MEDS: LACTOBACILLUS GG CAPSULE PO SCH (08:07)
[2017-01-05] MEDS: INSULIN LISPRO 100 UNITS/ML SUBCUT SCH ×4 (08:10→22:26)
[2017-01-06] VITALS (9 sets, daily range): BP systolic 93–126; BP diastolic 42–69
[2017-01-06] MEDS: DILTIAZEM HCL 60MG TABLET PO SCH (06:00)
[2017-01-06] MEDS: VANCOMYCIN HCL 1000 MG/20 ML ORAL PO SCH ×3 (06:06→18:05)
[2017-01-06] MEDS: LEVOTHYROXINE SODIUM 125MCG TABLET PO SCH (06:06)
[2017-01-06] MEDS: BLOOD SUGAR DIAGNOSTIC STRIP TEST SCH ×4 (06:08→20:43)
[2017-01-06] MEDS ORDERED: MORPHINE SULFATE 4 MG/ML CPJ (NOT FOR IM USE) IV SCH (06:30)
[2017-01-06 08:03] LABS: MEAN CORPUSCULAR HEMOGLOBIN 30.2 pg (28.0-32.0); MEAN CORPUSCULAR VOLUME 93.6 fL (81.0-99.0); MEAN PLATELET VOLUME 8.8 fl (7.4-10.4); PLATELET 81 x1000/uL (130-400); RED BLOOD CELL COUNT 3.63 mill/uL (4.2-5.4); RED CELL DISTRIBUTION WIDTH 17.1 % (11.6-14.6)
[2017-01-06] MEDS: ENOXAPARIN 40MG/0.4ML SYR SUBCUT SCH ×2 (09:00→13:12)
[2017-01-06] MEDS: FAMOTIDINE 20MG TABLET PO SCH (09:14)
[2017-01-06] MEDS: LACTOBACILLUS GG CAPSULE PO SCH (09:14)
[2017-01-06] MEDS: INSULIN LISPRO 100 UNITS/ML SUBCUT SCH ×4 (09:14→20:44)
[2017-01-06] MEDS: MORPHINE SULFATE 4 MG/ML CPJ (NOT FOR IM USE) IV PRN ×2 (11:15→20:33)
[2017-01-06] MEDS: DILTIAZEM HCL 30MG TABLET PO SCH ×2 (11:15→18:12)
[2017-01-06 12:18] LABS: BG BASE EXCESS -2.5 mmol/L (-2.0-2.0); BG CARBOXYHEMOGLOBIN 0.5 % (0.5-1.5); BG DEOXYHEMOGLOBIN 2.7 % (0.0-5.0); BG FRACTION INSPIRED OXYGEN 32; BG HCO3 ACT 22.6 mmol/L (22.0-26.0); BG METHEMOGLOBIN 0.2 % (0.0-1.5); BG OXYGEN SATURATION 97.3 % (92.0-98.5); BG OXYHEMOGLOBIN 96.6 % (94.0-97.0); BG PCO2 40.5 mmHg (35.0-45.0); BG PH 7.365 (7.350-7.450); BG PO2 94.5 mmHg (75.0-100.0); BG SAMPLE SITE RIGHT RADIAL; BG TOTAL HEMOGLOBIN 12.7 g/dL (12.0-18.0); BG VENT MODE NASAL CANNULA
[2017-01-06 16:31] LABS: PLATELET ESTIMATE DECREASED
[2017-01-07] VITALS (12 sets, daily range): BP systolic 92–130; BP diastolic 47–70
[2017-01-07] MEDS: VANCOMYCIN HCL 1000 MG/20 ML ORAL PO SCH ×4 (00:09→17:24)
[2017-01-07] MEDS: DILTIAZEM HCL 30MG TABLET PO SCH ×4 (00:09→17:20)
[2017-01-07] MEDS: BLOOD SUGAR DIAGNOSTIC STRIP TEST SCH ×4 (06:13→20:47)
[2017-01-07] MEDS: LEVOTHYROXINE SODIUM 125MCG TABLET PO SCH (06:13)
[2017-01-07 06:50] LABS: HEMATOCRIT. 35.1 % (36.0-48.0); HEMOGLOBIN. 11.4 g/dL (12.0-16.0); MEAN CORPUSCULAR HEMOGLOBIN 31.2 pg (28.0-32.0); MEAN CORPUSCULAR VOLUME 96.3 fL (81.0-99.0); PLATELET 72 x1000/uL (130-400); RED BLOOD CELL COUNT 3.64 mill/uL (4.2-5.4); RED CELL DISTRIBUTION WIDTH 17.2 % (11.6-14.6)
[2017-01-07] MEDS: LACTOBACILLUS GG CAPSULE PO SCH (08:15)
[2017-01-07] MEDS: FAMOTIDINE 20MG TABLET PO SCH (08:15)
[2017-01-07] MEDS: INSULIN LISPRO 100 UNITS/ML SUBCUT SCH ×4 (08:16→20:47)
[2017-01-07 10:29] LABS: PLATELET ESTIMATE DECREASED
[2017-01-07] MEDS: ENOXAPARIN 40MG/0.4ML SYR SUBCUT SCH (10:39)
[2017-01-07] MEDS: MORPHINE SULFATE 4 MG/ML CPJ (NOT FOR IM USE) IV PRN ×2 (15:27→22:25)
[2017-01-08] VITALS (14 sets, daily range): BP systolic 87–114; BP diastolic 37–65
[2017-01-08] MEDS: DILTIAZEM HCL 30MG TABLET PO SCH ×4 (00:35→17:24)
[2017-01-08] MEDS: VANCOMYCIN HCL 1000 MG/20 ML ORAL PO SCH ×4 (00:36→17:03)
[2017-01-08] MEDS: LEVOTHYROXINE SODIUM 125MCG TABLET PO SCH (06:55)
[2017-01-08] MEDS: BLOOD SUGAR DIAGNOSTIC STRIP TEST SCH ×4 (07:08→20:55)
[2017-01-08] MEDS: INSULIN LISPRO 100 UNITS/ML SUBCUT SCH ×4 (07:20→20:56)
[2017-01-08 07:24] LABS: BASOPHILS % 0.3 % (0.0-2.0); EOSINOPHILS % 1.2 % (0.0-5.0); HEMOGLOBIN. 11.3 g/dL (12.0-16.0); LYMPHOCYTES % 9.3 % (20.0-50.0); MEAN CORPUSCULAR HEMOGLOBIN 30.4 pg (28.0-32.0); MEAN CORPUSCULAR VOLUME 94.4 fL (81.0-99.0); MEAN PLATELET VOLUME 9.2 fl (7.4-10.4); MONOCYTES % 14.1 % (2.0-8.0); NEUTROPHILS % 75.1 % (40.0-76.0); PLATELET 112 x1000/uL (130-400); RED BLOOD CELL COUNT 3.71 mill/uL (4.2-5.4); RED CELL DISTRIBUTION WIDTH 17.3 % (11.6-14.6)
[2017-01-08] MEDS ORDERED: HEPARIN SODIUM 1,000 UNIT/1ML VIAL IV NR (09:15)
[2017-01-08] MEDS: FAMOTIDINE 20MG TABLET PO SCH (11:17)
[2017-01-08] MEDS: LACTOBACILLUS GG CAPSULE PO SCH (11:17)
[2017-01-08] MEDS: ENOXAPARIN 40MG/0.4ML SYR SUBCUT SCH (11:17)
[2017-01-09] VITALS (12 sets, daily range): BP systolic 103–118; BP diastolic 45–83
[2017-01-09] MEDS: VANCOMYCIN HCL 1000 MG/20 ML ORAL PO SCH ×4 (00:14→18:17)
[2017-01-09] MEDS: DILTIAZEM HCL 30MG TABLET PO SCH ×4 (00:14→18:16)
[2017-01-09] MEDS: HYDROCODONE/ACETAMINOPHEN 5/325MG TABLET PO PRN (04:11)
[2017-01-09] MEDS: LEVOTHYROXINE SODIUM 125MCG TABLET PO SCH (05:55)
[2017-01-09] MEDS: MORPHINE SULFATE 4 MG/ML CPJ (NOT FOR IM USE) IV PRN (05:55)
[2017-01-09] MEDS: BLOOD SUGAR DIAGNOSTIC STRIP TEST SCH ×4 (06:09→21:46)
[2017-01-09] MEDS: LACTOBACILLUS GG CAPSULE PO SCH (08:58)
[2017-01-09] MEDS: FAMOTIDINE 20MG TABLET PO SCH (08:58)
[2017-01-09] MEDS: ENOXAPARIN 40MG/0.4ML SYR SUBCUT SCH (08:58)
[2017-01-09] MEDS: INSULIN LISPRO 100 UNITS/ML SUBCUT SCH ×4 (08:59→21:45)
[2017-01-09] MEDS ORDERED: MORPHINE SULFATE 4 MG/ML CPJ (NOT FOR IM USE) IV PRN (18:30)
[2017-01-10] VITALS (12 sets, daily range): BP systolic 95–118; BP diastolic 42–60
[2017-01-10] MEDS: DILTIAZEM HCL 30MG TABLET PO SCH ×4 (00:17→18:09)
[2017-01-10] MEDS: BLOOD SUGAR DIAGNOSTIC STRIP TEST SCH ×4 (06:14→21:00)
[2017-01-10] MEDS: LEVOTHYROXINE SODIUM 125MCG TABLET PO SCH (06:14)
[2017-01-10] MEDS: INSULIN LISPRO 100 UNITS/ML SUBCUT SCH ×4 (07:51→21:08)
[2017-01-10 07:59] LABS: HEMATOCRIT. 33.8 % (36.0-48.0); HEMOGLOBIN. 10.8 g/dL (12.0-16.0); MEAN CORPUSCULAR HEMOGLOBIN 30.7 pg (28.0-32.0); MEAN CORPUSCULAR VOLUME 95.7 fL (81.0-99.0); MEAN PLATELET VOLUME 9.3 fl (7.4-10.4); PLATELET 123 x1000/uL (130-400); RED BLOOD CELL COUNT 3.53 mill/uL (4.2-5.4); RED CELL DISTRIBUTION WIDTH 17.9 % (11.6-14.6)
[2017-01-10] MEDS: FAMOTIDINE 20MG TABLET PO SCH (09:29)
[2017-01-10] MEDS: LACTOBACILLUS GG CAPSULE PO SCH (09:29)
[2017-01-10] MEDS: ENOXAPARIN 40MG/0.4ML SYR SUBCUT SCH (09:30)
[2017-01-10 13:49] LABS: PLATELET ESTIMATE SLIGHTLY DECREASED
[2017-01-11] VITALS (16 sets, daily range): BP systolic 83–112; BP diastolic 43–60
[2017-01-11] MEDS: LEVOTHYROXINE SODIUM 125MCG TABLET PO SCH (06:26)
[2017-01-11] MEDS: DILTIAZEM HCL 30MG TABLET PO SCH ×4 (06:26→18:00)
[2017-01-11] MEDS: BLOOD SUGAR DIAGNOSTIC STRIP TEST SCH ×4 (06:26→21:41)
[2017-01-11] MEDS: HYDROCODONE/ACETAMINOPHEN 5/325MG TABLET PO PRN ×3 (06:26→22:53)
[2017-01-11 07:08] LABS: INR 1.1; PARTIAL THROMBOPLASTIN TIME 26.7 sec (23.4-31.0); PROTHROMBIN TIME 11.3 sec (9.4-11.6)
[2017-01-11] MEDS: INSULIN LISPRO 100 UNITS/ML SUBCUT SCH ×4 (08:31→21:44)
[2017-01-11] MEDS: LACTOBACILLUS GG CAPSULE PO SCH (08:31)
[2017-01-11] MEDS: FAMOTIDINE 20MG TABLET PO SCH (08:31)
[2017-01-11] MEDS: ENOXAPARIN 40MG/0.4ML SYR SUBCUT SCH (09:00)
[2017-01-11 12:29] LABS: HEMATOCRIT. 34.4 % (36.0-48.0); MEAN CORPUSCULAR HEMOGLOBIN 30.5 pg (28.0-32.0); MEAN CORPUSCULAR VOLUME 95.1 fL (81.0-99.0); MEAN PLATELET VOLUME 9.4 fl (7.4-10.4); PLATELET 143 x1000/uL (130-400); RED BLOOD CELL COUNT 3.62 mill/uL (4.2-5.4); RED CELL DISTRIBUTION WIDTH 17.5 % (11.6-14.6)
[2017-01-11] MEDS ORDERED: SODIUM BICARBONATE 4% (2.4MEQ) 5ML VIAL IV ONE (13:58)
[2017-01-11 14:59] LABS: PLATELET ESTIMATE NORMAL
[2017-01-11] MEDS ORDERED: EPOETIN ALFA 10000UNITS/ML VIAL SUBCUT SCH (21:00)
[2017-01-12] VITALS (8 sets, daily range): BP systolic 74–114; BP diastolic 43–65
[2017-01-12] MEDS: VANCOMYCIN HCL 1000 MG/20 ML ORAL PO SCH ×5 (00:35→23:28)
[2017-01-12] MEDS: DILTIAZEM HCL 30MG TABLET PO SCH ×3 (06:00→20:40)
[2017-01-12] MEDS: BLOOD SUGAR DIAGNOSTIC STRIP TEST SCH ×4 (06:04→20:39)
[2017-01-12] MEDS: ENOXAPARIN 40MG/0.4ML SYR SUBCUT SCH (07:42)
[2017-01-12] MEDS: LEVOTHYROXINE SODIUM 125MCG TABLET PO SCH (08:35)
[2017-01-12] MEDS: LACTOBACILLUS GG CAPSULE PO SCH (08:35)
[2017-01-12] MEDS: FAMOTIDINE 20MG TABLET PO SCH (08:35)
[2017-01-12] MEDS: INSULIN LISPRO 100 UNITS/ML SUBCUT SCH ×4 (08:40→20:41)
[2017-01-12] MEDS ORDERED: SODIUM BICARBONATE 4% (2.4MEQ) 5ML VIAL IV ONE (12:14)
[2017-01-12] MEDS: HYDROCODONE/ACETAMINOPHEN 5/325MG TABLET PO PRN (12:23)
[2017-01-12] MEDS ORDERED: SODIUM CHLORIDE 0.9% 250 ML IV NR (20:15)
[2017-01-12] MEDS: CYPROHEPTADINE HCL 4 MG TABLET PO SCH (20:39)
[2017-01-12] MEDS: MICONAZOLE NITRATE 2% OINT 71GM TOP SCH (20:40)
[2017-01-13] VITALS: BP 105/52
[2017-01-13 04:00] VITALS: BP 96/43
[2017-01-13] MEDS: VANCOMYCIN HCL 1000 MG/20 ML ORAL PO SCH ×4 (05:30→17:27)
[2017-01-13] MEDS: BLOOD SUGAR DIAGNOSTIC STRIP TEST SCH ×4 (06:41→21:54)
[2017-01-13 06:57] LABS: HEMATOCRIT. 32.3 % (36.0-48.0); HEMOGLOBIN. 10.5 g/dL (12.0-16.0); MEAN CORPUSCULAR HEMOGLOBIN 30.5 pg (28.0-32.0); MEAN CORPUSCULAR VOLUME 93.6 fL (81.0-99.0); MEAN PLATELET VOLUME 9.7 fl (7.4-10.4); PLATELET 112 x1000/uL (130-400); RED BLOOD CELL COUNT 3.45 mill/uL (4.2-5.4); RED CELL DISTRIBUTION WIDTH 17.6 % (11.6-14.6)
[2017-01-13 08:00] VITALS: BP 96/63
[2017-01-13] MEDS: MICONAZOLE NITRATE 2% OINT 71GM TOP SCH ×2 (08:22→21:54)
[2017-01-13] MEDS: LACTOBACILLUS GG CAPSULE PO SCH (08:22)
[2017-01-13] MEDS: LEVOTHYROXINE SODIUM 125MCG TABLET PO SCH (08:22)
[2017-01-13] MEDS: FAMOTIDINE 20MG TABLET PO SCH (08:22)
[2017-01-13] MEDS: ENOXAPARIN 40MG/0.4ML SYR SUBCUT SCH (08:23)
[2017-01-13] MEDS: DILTIAZEM HCL 30MG TABLET PO SCH ×2 (08:23→21:53)
[2017-01-13] MEDS: INSULIN LISPRO 100 UNITS/ML SUBCUT SCH ×4 (08:25→22:11)
[2017-01-13 12:00] VITALS: BP 91/54
[2017-01-13 13:48] LABS: PLATELET ESTIMATE DECREASED
[2017-01-13 16:00] VITALS: BP 101/56
[2017-01-13 20:00] VITALS: BP 102/54
[2017-01-13] MEDS: CYPROHEPTADINE HCL 4 MG TABLET PO SCH (21:52)
[2017-01-14] VITALS: BP 118/51
[2017-01-14] MEDS: VANCOMYCIN HCL 1000 MG/20 ML ORAL PO SCH ×4 (00:23→17:59)
[2017-01-14] MEDS ORDERED: MORPHINE SULFATE 2 MG/ML CPJ (NOT FOR IM USE) IV SCH (02:45)
[2017-01-14 04:00] VITALS: BP 111/52
[2017-01-14] MEDS: DILTIAZEM HCL 30MG TABLET PO SCH ×3 (05:51→21:04)
[2017-01-14] MEDS: BLOOD SUGAR DIAGNOSTIC STRIP TEST SCH ×4 (05:51→21:02)
[2017-01-14] MEDS: INSULIN LISPRO 100 UNITS/ML SUBCUT SCH ×5 (06:11→21:16)
[2017-01-14 07:59] VITALS: BP 105/51
[2017-01-14] MEDS: LACTOBACILLUS GG CAPSULE PO SCH (08:20)
[2017-01-14] MEDS: LEVOTHYROXINE SODIUM 125MCG TABLET PO SCH (08:20)
[2017-01-14] MEDS: MICONAZOLE NITRATE 2% OINT 71GM TOP SCH ×2 (08:20→21:05)
[2017-01-14] MEDS: ENOXAPARIN 40MG/0.4ML SYR SUBCUT SCH (08:20)
[2017-01-14] MEDS: MORPHINE SULFATE 2 MG/ML CPJ (NOT FOR IM USE) IV PRN ×2 (08:22→12:26)
[2017-01-14] MEDS: FAMOTIDINE 20MG TABLET PO SCH (11:11)
[2017-01-14 12:00] VITALS: BP 101/39
[2017-01-14 15:55] VITALS: BP 120/53
[2017-01-14] MEDS ORDERED: ALTEPLASE 2MG/VIAL ITC NR (19:00)
[2017-01-14 20:00] VITALS: BP 92/55
[2017-01-14] MEDS: CYPROHEPTADINE HCL 4 MG TABLET PO SCH (21:03)
[2017-01-15] VITALS: BP 99/66
[2017-01-15] MEDS: VANCOMYCIN HCL 1000 MG/20 ML ORAL PO SCH ×4 (00:01→18:49)
[2017-01-15] MEDS: MORPHINE SULFATE 2 MG/ML CPJ (NOT FOR IM USE) IV PRN ×2 (00:01→04:00)
[2017-01-15 04:00] VITALS: BP 115/53
[2017-01-15] MEDS: BLOOD SUGAR DIAGNOSTIC STRIP TEST SCH ×4 (06:02→21:41)
[2017-01-15] MEDS: DILTIAZEM HCL 30MG TABLET PO SCH ×3 (06:02→21:44)
[2017-01-15 08:00] VITALS: BP 115/60
[2017-01-15] MEDS: ENOXAPARIN 40MG/0.4ML SYR SUBCUT SCH (09:00)
[2017-01-15] MEDS: FAMOTIDINE 20MG TABLET PO SCH (09:46)
[2017-01-15] MEDS: LEVOTHYROXINE SODIUM 125MCG TABLET PO SCH (09:46)
[2017-01-15] MEDS: LACTOBACILLUS GG CAPSULE PO SCH (09:46)
[2017-01-15] MEDS: INSULIN LISPRO 100 UNITS/ML SUBCUT SCH ×4 (09:50→21:42)
[2017-01-15] MEDS: MICONAZOLE NITRATE 2% OINT 71GM TOP SCH ×2 (09:51→21:40)
[2017-01-15 12:00] VITALS: BP 105/48
[2017-01-15 16:00] VITALS: BP 131/50
[2017-01-15 20:00] VITALS: BP 99/35
[2017-01-16] VITALS (9 sets, daily range): BP systolic 90–128; BP diastolic 23–51
[2017-01-16] MEDS: VANCOMYCIN HCL 1000 MG/20 ML ORAL PO SCH ×4 (00:31→18:00)
[2017-01-16] MEDS: DILTIAZEM HCL 30MG TABLET PO SCH (06:13)
[2017-01-16] MEDS: BLOOD SUGAR DIAGNOSTIC STRIP TEST SCH ×4 (07:40→20:50)
[2017-01-16] MEDS: ENOXAPARIN 40MG/0.4ML SYR SUBCUT SCH (09:00)
[2017-01-16] MEDS: INSULIN LISPRO 100 UNITS/ML SUBCUT SCH ×5 (09:40→21:30)
[2017-01-16] MEDS: LACTOBACILLUS GG CAPSULE PO SCH (09:41)
[2017-01-16] MEDS: FAMOTIDINE 20MG TABLET PO SCH (09:41)
[2017-01-16] MEDS: LEVOTHYROXINE SODIUM 125MCG TABLET PO SCH (09:41)
[2017-01-16] MEDS: MORPHINE SULFATE 2 MG/ML CPJ (NOT FOR IM USE) IV PRN ×3 (09:44→16:46)
[2017-01-16] MEDS: MICONAZOLE NITRATE 2% OINT 71GM TOP SCH ×2 (09:46→20:09)
[2017-01-17] VITALS: BP 145/42
[2017-01-17] MEDS: VANCOMYCIN HCL 1000 MG/20 ML ORAL PO SCH ×4 (00:18→17:47)
[2017-01-17] MEDS: MORPHINE SULFATE 2 MG/ML CPJ (NOT FOR IM USE) IV PRN ×2 (00:19→05:29)
[2017-01-17 04:00] VITALS: BP 102/42
[2017-01-17] MEDS: BLOOD SUGAR DIAGNOSTIC STRIP TEST SCH (05:40)
[2017-01-17 08:00] VITALS: BP 92/42
[2017-01-17] MEDS: MICONAZOLE NITRATE 2% OINT 71GM TOP SCH ×2 (09:00→20:21)
[2017-01-17] MEDS ORDERED: MORPHINE SULFATE 250 MG in DEXT 5% WATER 240 ML IV PRN (09:30)
[2017-01-17 12:00] VITALS: BP 92/46
[2017-01-17 16:00] VITALS: BP 83/43
[2017-01-17 20:44] VITALS: BP 83/31
== END 2017-01-18 00:35 | disposition expired | DRG 853 ==
LOC: ER 14:59 → EDBEDREQTM 20:15 → EDBEDREQ 20:15 → ENRESERV 23:21 → INTOOBSV 12-20 00:28 → OBSVTOIN 12-20 00:28 → 6WST 12-20 00:28 → CVICU 12-21 13:09 → 3WST 12-23 06:15 → 7WST 01-12 02:26
PROVIDERS: ADMIT Internal Medicine; ATTEND Internal Medicine
PROC: 5A1935Z Respiratory Ventilation, Less than 24 Consecutive Hours (ICD-10-PCS; 2016-12-21)
PROC: 0BH17EZ Insertion of Endotracheal Airway into Trachea, Via Natural or Artificial Opening (ICD-10-PCS; 2016-12-21)
PROC: 0DB80ZZ Excision of Small Intestine, Open Approach (ICD-10-PCS; principal; 2016-12-21 09:30)
PROC: 02HV33Z Insertion of Infusion Device into Superior Vena Cava, Percutaneous Approach (ICD-10-PCS; 2016-12-22)
PROC: B548ZZA Ultrasonography of Superior Vena Cava, Guidance (ICD-10-PCS; 2016-12-22)
PROC: 5A1D70Z Performance of Urinary Filtration, Intermittent, Less than 6 Hours Per Day (ICD-10-PCS; 2016-12-22)
PROC: 5A1D70Z Performance of Urinary Filtration, Intermittent, Less than 6 Hours Per Day (ICD-10-PCS; 2017-01-01)
PROC: 0W993ZZ Drainage of Right Pleural Cavity, Percutaneous Approach (ICD-10-PCS; 2017-01-11)
PROC: 0W9B3ZZ Drainage of Left Pleural Cavity, Percutaneous Approach (ICD-10-PCS; 2017-01-12)
DX: A41.9 Sepsis, unspecified organism (principal); K55.029 Acute infarction of small intestine, extent unspecified; D65 Disseminated intravascular coagulation [defibrination syndrome]; I13.2 Hypertensive heart and chronic kidney disease with heart failure and with stage 5 chronic kidney disease, or end stage renal disease; K56.609 Unspecified intestinal obstruction, unspecified as to partial versus complete obstruction; J90 Pleural effusion, not elsewhere classified; A04.72 Enterocolitis due to Clostridium difficile, not specified as recurrent; I95.9 Hypotension, unspecified; C49.A0 Gastrointestinal stromal tumor, unspecified site; N18.6 End stage renal disease; I42.0 Dilated cardiomyopathy; I47.1 Supraventricular tachycardia; I50.20 Unspecified systolic (congestive) heart failure; K56.7 Ileus, unspecified; N25.81 Secondary hyperparathyroidism of renal origin; I48.92 Unspecified atrial flutter; E11.22 Type 2 diabetes mellitus with diabetic chronic kidney disease; E66.01 Morbid (severe) obesity due to excess calories; E86.9 Volume depletion, unspecified; I48.0 Paroxysmal atrial fibrillation; D64.9 Anemia, unspecified; E03.9 Hypothyroidism, unspecified; E78.5 Hyperlipidemia, unspecified; E87.5 Hyperkalemia; I08.0 Rheumatic disorders of both mitral and aortic valves; I25.10 Atherosclerotic heart disease of native coronary artery without angina pectoris; E11.51 Type 2 diabetes mellitus with diabetic peripheral angiopathy without gangrene; I87.2 Venous insufficiency (chronic) (peripheral); J44.9 Chronic obstructive pulmonary disease, unspecified; M10.9 Gout, unspecified; R09.02 Hypoxemia; Z51.5 Encounter for palliative care; Z66 Do not resuscitate; M19.90 Unspecified osteoarthritis, unspecified site; E87.70 Fluid overload, unspecified; Z75.1 Person awaiting admission to adequate facility elsewhere; Z79.4 Long term (current) use of insulin; Z79.899 Other long term (current) drug therapy; Z85.00 Personal history of malignant neoplasm of unspecified digestive organ; Z87.891 Personal history of nicotine dependence; Z90.49 Acquired absence of other specified parts of digestive tract; Z91.81 History of falling; Z99.2 Dependence on renal dialysis; Z88.2 Allergy status to sulfonamides; Z90.710 Acquired absence of both cervix and uterus; Z88.8 Allergy status to other drugs, medicaments and biological substances
CPT/HCPCS: 32555; 36415; 36569; 36600; 71010; 71250; 74000; 74176; 74177; 76937; 78580; 80048; 80053; 82150; 82375; 82805; 82945; 82962; 83605; 83690; 83735; 84100; 84157; 84443; 84484; 85025; 85610; 85730; 86022; 86850; 86870; 86900; 87040; 87070; 87102; 87116; 87205; 87493; 88108; 88305; 88312; 89050; 93005; 93306; 94002; 96361; 96374; 96375; 96376; 97110; 97116; 97162; 97530; 99285; A4216; A6261; C1725; C9113; G0378; J0330; J0885; J1100; J1644; J1650; J1815; J2250; J2270; J2405; J2543; J2704; J2710; J2997; J3010; J3370; J3490; J7030; J7040; J7050; J7060; Q9967